=== PATIENT | female | born 1950 | race Caucasian/White ===

== ENCOUNTER 2016-10-22 19:25 | Emergency (ER) | payer BC, OTHER ==
[~2016-10-22] VITALS: Ht 162.6 cm; Wt 70.0 kg
[~2016-10-22 19:25] MED LIST: ALBU1AER INH; BACT800T5 PO; ESTRADIOL PO; FOSA70TA PO; PROGES PO; TESTOST PO; [UNRECOGNIZED DRUG - CODE] PO
[2016-10-22 19:32] VITALS: BP 107/79; PULSE 58; RESP 16; TEMP 97.4; O2SAT 100
[2016-10-22] MEDS ORDERED: SODIUM CHLOR 0.9% 1000 ML INJ 1,000 ML IV SCH (19:49)
--- NOTE | 2016-10-22 19:53 | PD ---
HPI Chief Complaint: Cardiac Complaint Time Seen by Provider: 19:44 Travel History International Travel<30 days: No Contact w/Intl Traveler<30days: No Traveled to known affect area: No History of Present Illness HPI 66-year-old female with history of COPD, here for evaluation of several different complaints. The patient reports having sinus congestion, palpitations , shortness of breath, some chest tightness, generalized malaise. Symptoms started today. She denies fevers or chills. She has had nausea and a few episodes of clear emesis. She feels as though she needs to have a bowel movement at time of assessment. She denies abdominal pain. No real chest pain , however is complaining of some acid reflux like symptoms. PFSH Past Medical History COPD: Yes Menopausal: Yes Tubal Ligation: Yes Past Surgical History Tympanostomy Tube: Yes Social History Alcohol Use: No Tobacco Use: Yes (08/28 PPD) Substance Use: No Allergies-Medications (Allergen,Severity, Reaction): Coded Allergies: No Known Allergies (Verified , 10/22/16) Reported Meds & Prescriptions Reported Meds & Active Scripts Active Reported Alendronate (Alendronate Sodium) 70 Mg Tab 70 Mg PO Q7D Ventolin Hfa 18 GM Inh (Albuterol Sulfate) 90 Mcg/Act Aer 2 Puff INH Q4-6H PRN [estradiol/test] 0.5 Mg PO DAILY [estradiol/proges] 1 Cap PO DAILY Dhea (Prasterone (DHEA)) 10 Mg Cap 5 Mg PO DAILY Review of Systems Except as stated in HPI: all other systems reviewed are Neg Physical Exam Narrative GENERAL: Well-developed, well-nourished, comfortable, no acute distress. SKIN: Warm and dry. HEAD: Atraumatic. Normocephalic. EYES: Pupils equal and round. No scleral icterus. No injection or drainage. ENT: Mucous membranes pink and dry. Bilateral tympanic membranes and external auditory canals are normal. CARDIOVASCULAR: Regular rate and rhythm. No murmur appreciated. RESPIRATORY: No accessory muscle use. Clear to auscultation. Breath sounds equal bilaterally. GASTROINTESTINAL: Abdomen soft, non-tender, nondistended. MUSCULOSKELETAL: No obvious deformities. No clubbing. No cyanosis. No edema. NEUROLOGICAL: Awake and alert. No obvious cranial nerve deficits. Motor grossly within normal limits. Normal speech. PSYCHIATRIC: Appropriate mood and affect; insight and judgment normal. Data Data Last Documented VS Vital Signs Date Time Temp Pulse Resp B/P Pulse Ox O2 Delivery O2 Flow Rate FiO2 10/22/16 22:10 86 18 100/53 96 Room Air 10/22/16 19:32 97.4 Orders Complete Blood Count With Diff (10/22/16 19:49) Comprehensive Metabolic Panel (10/22/16 19:49) Lipase (10/22/16 19:49) Prothrombin Time / Inr (Pt) (10/22/16 19:49) Act Partial Throm Time (Ptt) (10/22/16 19:49) Urinalysis - C+S If Indicated (10/22/16 19:49) Iv Access Insert/Monitor (10/22/16 19:49) Ecg Monitoring (10/22/16 19:49) Oximetry (10/22/16 19:49) Ondansetron Inj (Zofran Inj) (10/22/16 20:00) Pantoprazole Inj (Protonix Inj) (10/22/16 20:00) Sodium Chlor 0.9% 1000 Ml Inj (Ns 1000 M (10/22/16 19:49) Sodium Chloride 0.9% Flush (Ns Flush) (10/22/16 20:00) Electrocardiogram (10/22/16 19:49) Al-Mag Hy-Si 40-40-4 Mg/Ml Liq (Mag-Al P (10/22/16 20:00) Lidocaine 2% Viscous (Xylocaine 2% Visco (10/22/16 20:00) Ckmb (Isoenzyme) Profile (10/22/16 19:49) Troponin I (10/22/16 19:49) Chest, Single Ap (10/22/16 19:49) Albuterol-Ipratropium Neb (Duoneb Neb) (10/22/16 20:00) Influenzae A/B Antigen (10/22/16 19:51) Troponin I (10/22/16 22:30) Fluconazole (Diflucan) (10/22/16 21:15) Pill Splitter (Pill Splitter) (10/22/16 21:45) Labs Laboratory Tests Test 10/22/16 10/22/16 10/22/16 19:40 19:50 22:15 White Blood Count 8.8 TH/MM3 Red Blood Count 5.03 MIL/MM3 Hemoglobin 15.4 GM/DL Hematocrit 46.5 % Mean Corpuscular Volume 92.6 FL Mean Corpuscular Hemoglobin 30.7 PG Mean Corpuscular Hemoglobin 33.2 % Concent Red Cell Distribution Width 12.8 % Platelet Count 253 TH/MM3 Mean Platelet Volume 7.7 FL Neutrophils (%) (Auto) 74.2 % Lymphocytes (%) (Auto) 18.8 % Monocytes (%) (Auto) 6.4 % Eosinophils (%) (Auto) 0.3 % Basophils (%) (Auto) 0.3 % Neutrophils # (Auto) 6.6 TH/MM3 Lymphocytes # (Auto) 1.6 TH/MM3 Monocytes # (Auto) 0.6 TH/MM3 Eosinophils # (Auto) 0.0 TH/MM3 Basophils # (Auto) 0.0 TH/MM3 CBC Comment DIFF FINAL Differential Comment Prothrombin Time 10.3 SEC Prothromb Time International 0.9 RATIO Ratio Activated Partial 26.3 SEC Thromboplast Time Sodium Level 138 MEQ/L Potassium Level 3.5 MEQ/L Chloride Level 103 MEQ/L Carbon Dioxide Level 27.7 MEQ/L Anion Gap 7 MEQ/L Blood Urea Nitrogen 16 MG/DL Creatinine 0.78 MG/DL Estimat Glomerular Filtration 74 ML/MIN Rate Random Glucose 94 MG/DL Calcium Level 8.0 MG/DL Total Bilirubin 1.6 MG/DL Aspartate Amino Transf 13 U/L (AST/SGOT) Alanine Aminotransferase 24 U/L (ALT/SGPT) Alkaline Phosphatase 55 U/L Total Creatine Kinase 48 U/L Troponin I LESS THAN 0.02 LESS THAN 0.02 NG/ML NG/ML Total Protein 6.9 GM/DL Albumin 3.3 GM/DL Lipase 76 U/L Urine Color STRAW Urine Turbidity SLIGHT Urine pH 6.0 Urine Specific Angelica 1.007 Urine Protein NEG mg/dL Urine Glucose (UA) NEG mg/dL Urine Ketones 15 mg/dL Urine Occult Blood NEG Urine Nitrite NEG Urine Bilirubin NEG Urine Leukocyte Esterase NEG Urine Squamous Epithelial 0-5 /hpf Cells Urine Bacteria OCC /hpf Urine Yeast (Budding) RARE Microscopic Urinalysis Comment CULT NOT INDICATED MDM Medical Decision Making Medical Screen Exam Complete: Yes Emergency Medical Condition: Yes Medical Record Reviewed: Yes Interpretation(s) EKG: Sinus, rate 60, right axis deviation, short WI interval, septal T-wave inversions, no ST segment abnormalities, unchanged from 2011 Differential Diagnosis COPD exacerbation, ACS, palpitations, dehydration, electrolyte abnormality, URI , influenza, anxiety Narrative Course Initial vital signs show heart rate 50, blood pressure 107/79, pulse ox 100% on room air, oral temp of 97.4F. CBC shows WBC 8.8, hemoglobin 15.4, hematocrit 46.5, platelets 253. CMP is essentially unremarkable. Cardiac enzymes are negative. Lipase is 76. Influenza is negative. UA shows 15 ketones, occasional bacteria, rare budding yeast, culture not indicated. The patient was given a dose of Diflucan. Chest x-ray: Minimal bibasilar densities likely atelectasis. Patient was given 3 DuoNeb treatments, check cocktail, IV Protonix, IV Zofran, and reports feeling much better. No longer has reflux type symptoms. Delta troponin will be ordered to help rule out cardiac cause for patient's symptoms. Delta troponin is also negative. Patient has history of hiatal hernia which I believe is contributing to her reflux like symptoms. Again she is feeling much better after receiving GI cocktail, Zofran, and Protonix. Her abdominal exam is benign. She is resting comfortably. I do not believe her symptoms are cardiac in nature. I believe she is stable for discharge home with outpatient follow-up with her primary care physician this week. She was informed on when to return to the emergency department. She verbalizes understanding and agreement with plan. Diagnosis Primary Impression: GERD (gastroesophageal reflux disease) Qualified Code: K21.9 - Gastroesophageal reflux disease, esophagitis presence not specified Referrals: Primary Care Physician 3 days Additional Instructions: Follow-up with your primary care physician this week. Return to the emergency department for worsening symptoms or any other concerns. Scripts Pantoprazole (Protonix)40 Mg Tab40 Mg PO DAILY #30 TAB Ref 0 Prov:Chi Brooks MD 10/22/16 Disposition: 01 DISCHARGE HOME Condition: Stable Chi Brooks MD Oct 22, 2016 19:53
[2016-10-22 20:00] VITALS: BP 90/80; PULSE 60; RESP 18; O2SAT 100
[2016-10-22] MEDS ORDERED: LIDOCAINE VISCOUS 2% SOLN 15 ML UDC PO ONE (20:00)
[2016-10-22] MEDS ORDERED: PANTOPRAZOLE SODIUM 40 MG VIAL IVP ONE (20:00)
[2016-10-22] MEDS ORDERED: SODIUM CHLORIDE 0.9% FLUSH 5 ML FLUSH IVF PRN (20:00)
[2016-10-22] MEDS ORDERED: ONDANSETRON HCL 4 MG/2 ML VIAL IVP ONE (20:00)
[2016-10-22] MEDS ORDERED: ALUMINUM/MAGNESIUM/SIMETH 30 ML CUP PO ONE (20:00)
[2016-10-22] MEDS: RESP: ALBUTEROL 2.5 MG/IPRATROPIUM 0.5 MG NEB (SCH) INH (20:04)
[2016-10-22] MEDS ORDERED: ESTRADIOL PO (20:33)
[2016-10-22] MEDS ORDERED: VENTAER INH (20:33)
[2016-10-22] MEDS ORDERED: PROGES PO (20:33)
[2016-10-22] MEDS ORDERED: [UNRECOGNIZED DRUG - CODE] PO (20:33)
[2016-10-22] MEDS ORDERED: [UNRECOGNIZED DRUG - CODE] PO (20:33)
[2016-10-22] MEDS ORDERED: ALEN1TAB48 PO (20:33)
[2016-10-22 20:36] LABS: AUTOMATED NEUTROPHIL # 6.6 TH/MM3 (1.8-7.7); BASOPHIL % 0.3 % (0.0-2.0); EOSINOPHIL % 0.3 % (0.0-4.0); HEMATOCRIT 46.5 % (35.0-46.0); HEMO FLAGS DIFF FINAL; LYMPH % 18.8 % (9.0-44.0); LYMPHOCYTE # 1.6 TH/MM3 (1.0-4.8); MEAN CELL VOLUME 92.6 FL (80.0-100.0); MEAN CORPUSCULAR HEMOGLOBIN 30.7 PG (27.0-34.0); MEAN CORPUSCULAR HGB CONC 33.2 % (32.0-36.0); MONO % 6.4 % (0.0-8.0); NEUT % 74.2 % (16.0-70.0); PLATELET COUNT 253 TH/MM3 (150-450); RED BLOOD COUNT 5.03 MIL/MM3 (4.00-5.30); RED CELL DISTRIBUTION WIDTH 12.8 % (11.6-17.2); WHITE BLOOD COUNT 8.8 TH/MM3 (4.0-11.0)
[2016-10-22 20:38] LABS: BLOOD, URINE NEG (NEG); GLUCOSE,URINE NEG (NEG); KETONE, URINE 15 mg/dL (NEG); NITRITE,URINE NEG (NEG)
[2016-10-22 20:41] LABS: CHLORIDE 103 MEQ/L (98-107); POTASSIUM 3.5 MEQ/L (3.5-5.1); SODIUM (NA) 138 MEQ/L (136-145)
[2016-10-22 20:43] LABS: URINE COLOR STRAW (YELLW/STRAW)
[2016-10-22 20:44] LABS: BACTERIA, URINE OCC /hpf; SQUAMOUS EPITHELIAL CELL URINE 0-5 /hpf (0-5)
[2016-10-22 20:44] LABS: APTT (PATIENT) 26.3 SEC (24.3-30.1); INTERNATIONAL NORMALIZED RATIO 0.9 RATIO; PROTHROMBIN TIME - PATIENT 10.3 SEC (9.8-11.6)
[2016-10-22 20:45] LABS: COMMENT (UR) CULT NOT INDICATED; CULTURE IF INDICATED CULT NOT INDICATED
[2016-10-22 20:47] LABS: ANION GAP 7 MEQ/L (5-15); BICARBONATE 27.7 MEQ/L (21.0-32.0); BLOOD UREA NITROGEN 16 MG/DL (7-18)
[2016-10-22 20:50] LABS: ALT (GPT) 24 U/L (10-53); AST (GOT) 13 U/L (15-37); GLOMERULAR FILTRATION RATE 74 ML/MIN (>89)
[2016-10-22 20:51] LABS: TOTAL BILIRUBIN ADULT 1.6 MG/DL (0.2-1.0)
[2016-10-22 20:53] LABS: ALKALINE PHOSPHATASE 55 U/L (45-117)
[2016-10-22 20:57] LABS: CREATINE KINASE 48 U/L (26-192)
[2016-10-22 21:00] VITALS: BP 107/69; PULSE 88; RESP 18; O2SAT 97
--- NOTE | 2016-10-22 21:01 | RADHPO ---
EXAM DATE/TIME: 10/22/2016 20:12 [facility] COMPARISON: No previous studies available for comparison. INDICATIONS : Short of breath. MEDICAL HISTORY : None. SURGICAL HISTORY : None. ENCOUNTER: Initial ACUITY: 1 day PAIN SCORE: 6/10 LOCATION: Bilateral chest FINDINGS: A single view of the chest demonstrates minimal bibasilar densities. Heart normal size. The cardiomed iastinal contours are unremarkable. Osseous structures are intact. CONCLUSION: Minimal bibasilar densities likely atelectasis. Taqueria Fontenot MD on October 22, 2016 at 20:58 Board Certified Radiologist. This report was verified electronically.
[2016-10-22] MEDS ORDERED: FLUCONAZOLE 100 MG TAB PO ONE (21:15)
[2016-10-22] MEDS ORDERED: PILL SPLITTER OTHER PRN (21:45)
[2016-10-22 22:10] VITALS: BP 100/53; PULSE 86; RESP 18; O2SAT 96
[2016-10-22] MEDS ORDERED: PROT40TA PO (22:56)
--- NOTE | 2016-10-23 12:03 | EKG ---
Date Performed: 10/22/2016 Time Performed: 19:59:20 PTAGE: 66 years EKG: Sinus rhythm . Rightward axis Septal T wave changes are nonspecific Compared to prior tracing no significant tucker e Borderline ECG PREVIOUS TRACING : 04/10/2011 08.38 DOCTOR: Luan Tellez Interpretating Date/Time 10/23/2016 12:03:15
== END 2016-10-22 23:10 | disposition home or self-care (01) ==
LOC: PHED 19:25
DX: K21.9 Gastro-esophageal reflux disease without esophagitis (principal); J44.9 Chronic obstructive pulmonary disease, unspecified; F17.200 Nicotine dependence, unspecified, uncomplicated
CPT/HCPCS: 71010; 80053; 81001; 82550; 83690; 84484; 85025; 85610; 85730; 87804; 93005; 94640; 94664; 96361; 96374; 96375; 99285; C9113; J2405; J7030

== ENCOUNTER 2017-07-30 10:34 | Emergency (ER) | payer OTHER, MEDICARE ==
[~2017-07-30] VITALS: Ht 165.1 cm; Wt 71.0 kg
[~2017-07-30 10:34] MED LIST changes: -ALBU1AER INH; +ALEN1TAB48 PO; -BACT800T5 PO; -FOSA70TA PO; +PROT40TA PO; -TESTOST PO; +VENTAER INH; +[UNRECOGNIZED DRUG - CODE] PO; +[UNRECOGNIZED DRUG - CODE] PO; -[UNRECOGNIZED DRUG - CODE] PO
[2017-07-30 10:43] VITALS: BP 110/67; PULSE 67; RESP 17; TEMP 97.3; O2SAT 98
--- NOTE | 2017-07-30 11:14 | PD ---
HPI . Reflux Chief Complaint: Abdominal Pain Time Seen by Provider: 11:04 Travel History International Travel<30 days: No Contact w/Intl Traveler<30days: No Traveled to known affect area: No History of Present Illness HPI The patient presents with a chief complaint of abdominal pain. It is located in the epigastrium. It started 2 days ago. She describes her discomfort as a burning sensation which she rates 6/10. Has intermittent reflux but it is usually easily treatable with [id number]-[id number] antacids. She has been using kqrk-mum-[id number] antacids for the last couple of days without relief of her symptoms. She states that her reflux is generally worsened by tomatoes. In addition, she reports some sinus drainage. [facility] Past Medical History COPD: Yes Diminished Hearing: No Gastrointestinal Disorders: Yes (IBS) GERD: Yes Musculoskeletal: Yes Neurologic: Yes (neurofibromatosis) Respiratory: Yes (MILD COPD) Tetanus Vaccination: Unknown Influenza Vaccination: Yes Menopausal: Yes : 0 Tubal Ligation: Yes Past Surgical History Abdominal Surgery: Yes (colon polyps removed/ endoscopy) Tonsillectomy: Yes Other Surgery: Yes (multiple removal of fibroid tumors without anesthesia) Social History Alcohol Use: Yes (occassional ) Tobacco Use: Yes (1 08/28 PPD) Substance Use: No Allergies-Medications (Allergen,Severity, Reaction): Coded Allergies: No Known Allergies (Verified Adverse Reaction, Unknown, 07/30/17) Reported Meds & Prescriptions Reported Meds & Active Scripts Active Reported Alendronate (Alendronate Sodium) 70 Mg Tab 70 Mg PO Q7D Ventolin Hfa 18 GM Inh (Albuterol Sulfate) 90 Mcg/Act Aer 2 Puff INH Q4-6H PRN Review of Systems Except as stated in HPI: all other systems reviewed are Neg HENT: Positive: Other (postnasal drip) Gastrointestinal: Positive: Abdominal Pain, No: Nausea, Vomiting, Diarrhea Physical Exam Narrative GENERAL: Awake and alert and in no acute distress. SKIN: warm/dry. HEAD: Normocephalic. EYES: Pupils equal and round. No scleral icterus. No injection or drainage. ENT: No nasal bleeding or discharge. Mucous membranes pink and moist. She does have some irritation of her oropharynx. NECK: Trachea midline. Full range of motion without pain.. CARDIOVASCULAR: Regular rate and rhythm. Heart sounds are normal. RESPIRATORY: No accessory muscle use. Clear to auscultation. Breath sounds equal bilaterally. GASTROINTESTINAL: Abdomen soft. Nontender. Bowel sounds present. Nondistended. : MUSCULOSKELETAL: No obvious deformities. NEUROLOGICAL: Awake and alert. No obvious cranial nerve deficits. Motor grossly within normal limits. Normal speech. PSYCHIATRIC: Appropriate mood and affect; insight and judgment normal. Data Data Last Documented VS Vital Signs Date Time Temp Pulse Resp B/P (MAP) Pulse Ox O2 Delivery O2 Flow Rate FiO2 07/30/17 10:43 97.3 67 17 110/67 (81) 98 Orders Orders Complete Blood Count With Diff (07/30/17 11:04) Comprehensive Metabolic Panel (07/30/17 11:04) Lipase (07/30/17 11:04) Iv Access Insert/Monitor (07/30/17 11:04) Sodium Chloride 0.9% Flush (Ns Flush) (07/30/17 11:15) Electrocardiogram (07/30/17 11:04) Famotidine Inj (Pepcid Inj) (07/30/17 11:15) Al-Mag Hy-Si 40-40-4 Mg/Ml Liq (Mag-Al P (07/30/17 11:15) Lidocaine 2% Viscous (Xylocaine 2% Visco (07/30/17 11:15) Labs Laboratory Tests Test 07/30/17 11:20 White Blood Count 10.4 TH/MM3 Red Blood Count 5.21 MIL/MM3 Hemoglobin 15.8 GM/DL Hematocrit 48.0 % Mean Corpuscular Volume 92.1 FL Mean Corpuscular Hemoglobin 30.3 PG Mean Corpuscular Hemoglobin Concent 33.0 % Red Cell Distribution Width 12.0 % Platelet Count 243 TH/MM3 Mean Platelet Volume 7.7 FL Neutrophils (%) (Auto) 78.3 % Lymphocytes (%) (Auto) 15.1 % Monocytes (%) (Auto) 5.8 % Eosinophils (%) (Auto) 0.4 % Basophils (%) (Auto) 0.4 % Neutrophils # (Auto) 8.2 TH/MM3 Lymphocytes # (Auto) 1.6 TH/MM3 Monocytes # (Auto) 0.6 TH/MM3 Eosinophils # (Auto) 0.0 TH/MM3 Basophils # (Auto) 0.0 TH/MM3 CBC Comment DIFF FINAL Differential Comment Blood Urea Nitrogen 16 MG/DL Creatinine 0.87 MG/DL Random Glucose 88 MG/DL Total Protein 7.8 GM/DL Albumin 3.8 GM/DL Calcium Level 9.1 MG/DL Alkaline Phosphatase 70 U/L Aspartate Amino Transf (AST/SGOT) 18 U/L Alanine Aminotransferase (ALT/SGPT) 29 U/L Total Bilirubin 1.8 MG/DL Sodium Level 136 MEQ/L Potassium Level 4.1 MEQ/L Chloride Level 101 MEQ/L Carbon Dioxide Level 28.3 MEQ/L Anion Gap 7 MEQ/L Estimat Glomerular Filtration Rate 66 ML/MIN Lipase 101 U/L MDM Medical Decision Making Medical Screen Exam Complete: Yes Emergency Medical Condition: Yes Medical Record Reviewed: Yes (patient was seen in September 2016 with very similar complaints. Her workup was negative. She was successfully treated with a GI cocktail, Protonix and Zofran.) Interpretation(s) EKG shows a sinus rhythm with a rate of 64. No ST segment elevation or depression. Differential Diagnosis Differential diagnosis of abdominal pain includes but is not limited to gastritis, pancreatitis, hepatitis, gastroenteritis, gallbladder disease, constipation, urinary retention, UTI, peptic ulcer disease, diverticulitis or appendicitis Narrative Course This patient presents with epigastric abdominal pain. She reports a history of GERD and states that her symptoms are similar to her previous episodes of GERD. The difference is that this episode has not been relieved by etow-jee-vwhyedf antacids. I have ordered a GI cocktail and IV Pepcid. (Protonix is in short supply.) I will check labs including a lipase. I will also check an EKG. The patient reports she feels much better following the GI cocktail. CBC & BMP Diagram 07/30/17 11:20 Total Protein 7.8, Albumin 3.8, Calcium Level 9.1, Alkaline Phosphatase 70, Aspartate Amino Transf (AST/SGOT) 18, Alanine Aminotransferase (ALT/SGPT) 29, Total Bilirubin 1.8 H Lipase 101 The patient presented with epigastric pain compatible with GERD. She feels much better. Her labs and EKG are unremarkable. She will be discharged home. I will give her a prescription for Prilosec. Diagnosis Primary Impression: GERD (gastroesophageal reflux disease) Qualified Codes: K21.9 - Gastro-esophageal reflux disease without esophagitis Patient Instructions: Gastroesophageal Reflux Disease (DC), General Instructions Med/Other Pt SpecificInfo: Prescription(s) given Scripts Omeprazole Magnesium (Prilosec) 20 Mg Tab 1 TAB PO DAILY Y for indigestion, #30 Prov: Zoya Olsen MD 07/30/17 Disposition: 01 DISCHARGE HOME Condition: Stable Zoya Olsen MD Jul 30, 2017 11:14
[2017-07-30] MEDS ORDERED: FAMOTIDINE 20 MG/2 ML VIAL IV PUSH ONE (11:15)
[2017-07-30] MEDS ORDERED: SODIUM CHLORIDE 0.9% FLUSH 10 ML FLUSH IV FLUSH PRN (11:15)
[2017-07-30] MEDS ORDERED: LIDOCAINE VISCOUS 2% SOLN 15 ML UDC PO ONE (11:15)
[2017-07-30] MEDS ORDERED: ALUMINUM/MAGNESIUM/SIMETH 30 ML CUP PO ONE (11:15)
[2017-07-30 11:41] LABS: AUTOMATED NEUTROPHIL # 8.2 TH/MM3 (1.8-7.7); BASOPHIL % 0.4 % (0.0-2.0); EOSINOPHIL % 0.4 % (0.0-4.0); HEMO FLAGS DIFF FINAL; LYMPH % 15.1 % (9.0-44.0); LYMPHOCYTE # 1.6 TH/MM3 (1.0-4.8); MEAN CELL VOLUME 92.1 FL (80.0-100.0); MEAN CORPUSCULAR HEMOGLOBIN 30.3 PG (27.0-34.0); MONO % 5.8 % (0.0-8.0); NEUT % 78.3 % (16.0-70.0); PLATELET COUNT 243 TH/MM3 (150-450); RED BLOOD COUNT 5.21 MIL/MM3 (4.00-5.30); WHITE BLOOD COUNT 10.4 TH/MM3 (4.0-11.0)
[2017-07-30 11:56] LABS: CHLORIDE 101 MEQ/L (98-107); POTASSIUM 4.1 MEQ/L (3.5-5.1); SODIUM (NA) 136 MEQ/L (136-145)
[2017-07-30 11:59] LABS: ANION GAP 7 MEQ/L (5-15); BICARBONATE 28.3 MEQ/L (21.0-32.0); BLOOD UREA NITROGEN 16 MG/DL (7-18)
[2017-07-30 12:02] LABS: ALT (GPT) 29 U/L (10-53); AST (GOT) 18 U/L (15-37); GLOMERULAR FILTRATION RATE 66 ML/MIN (>89)
[2017-07-30 12:04] LABS: TOTAL BILIRUBIN ADULT 1.8 MG/DL (0.2-1.0)
[2017-07-30 12:05] LABS: ALKALINE PHOSPHATASE 70 U/L (45-117)
[2017-07-30 12:14] VITALS: BP 128/63; PULSE 67; RESP 17; O2SAT 98
[2017-07-30] MEDS ORDERED: PRIL20TA2 PO (12:15)
--- NOTE | 2017-07-30 18:42 | EKG ---
Date Performed: 07/30/2017 Time Performed: 11:15:38 PTAGE: 66 years EKG: Sinus rhythm NORMAL ECG Since PREVIOUS TRACING , no significant change noted PREVIOUS TRACIN10/22/2016 19.59 DOCTOR: Barbra Lebron Interpretating Date/Time 07/30/2017 18:41:20
== END 2017-07-30 12:27 | disposition home or self-care (01) ==
LOC: PHED 10:34
DX: K21.9 Gastro-esophageal reflux disease without esophagitis (principal); F17.200 Nicotine dependence, unspecified, uncomplicated; Z79.899 Other long term (current) drug therapy
CPT/HCPCS: 80053; 83690; 85025; 93005; 96374

== ENCOUNTER 2018-07-31 23:27 | Inpatient (IN) ==
--- NOTE | 2018-08-01 00:31 | ED ---
HPI General Chief Complaint: Extremity Injury, Lower Stated Complaint: R Ankle injury Time Seen by Provider: 08/01/18 00:09 Source: patient Mode of arrival: wheelchair Limitations: no limitations History of Present Illness HPI Narrative: Patient states that she was carrying a box down from her attic. Tripped on the fold-down stairwell and thinks that she rolled her right ankle. States that she is unable to bear weight on the extremity. no numbness or tingling in foot. Just instant pain and swelling MD complaint: Reports foot injury Type of Injury: Reports inversion Place: Reports home Severity: moderate Severity scale (1-10): 5 Relieving factors: nothing Exacerbating factors: nothing Associated symptoms: Reports unable to bear weight Other symptoms: Denies loss of consciousness, chest pain, diaphoresis, SOB and nausea/vomiting Treatments prior to arrival: Reports cold therapy Related Data Home Medications Medication Instructions Recorded Confirmed alendronate [Fosamax] 70 mg PO QWEEK 08/01/18 08/01/18 fluticasone-vilanterol [Breo 1 inh INHALATION DAILY 08/01/18 08/01/18 Ellipta] furosemide [Lasix] 20 mg PO DAILY PRN 08/01/18 08/01/18 Allergies Allergy/AdvReac Type Severity Reaction Status Date / Time No Known Allergies Allergy Verified 08/01/18 04:08 Review of Systems ROS: all other systems reviewed are negative [facility] Medical History Medical History Asthma (Acute) Kidney stones (Acute) Skin cancer (Acute) Surgical History Surgical History Hx of tonsillectomy (Acute) Social History Social History Substance History: No History of Abuse Second Hand Smoke Exposure: No Smoking Status: Never smoker How Often Do You Have a Drink Containing Alcohol: 4 or more times a week Recent Travel in [facility] [[email or web address]] within the Last 8 Weeks: No Recent Out of Country Travel within the Last 8 Weeks: No Exam HENMT Head: normocephalic and atraumatic Nose: no nasal discharge and no epistaxis Mouth: moist mucous membranes Eyes Sclera: normal sclerae Pupils: PERRL Neck Neck: trachea midline and no JVD Resp Effort & Inspection: no use of accessory muscles Auscultation: clear to auscultation bilaterally Cardio Rate: regular rate Rhythm: regular rhythm Heart Sounds: no murmurs GI Inspection: non-distended Palpation: soft, no hepatosplenomegaly and nontender Skin General: dry skin (warm) Neuro General: alert and awake Cranial Nerves: other Speech: speech normal Motor: no movement abnormalities noted Extrem General: normal to inspection, no clubbing, no cyanosis and no edema Right lower extremity: ankle and foot Details: edema (lateral and medial maleolous ecchymosis and edema ), ecchymosis (dorsal and plantar posterior foot. ), vascular exam Details: dorsalis pedis pulse present and posterior tibial pulse present and motor-sensory exam Psych Mood: congruent mood Affect: normal affect Judgment: judgment good Course Initial Documented Vital Signs Temperature 97.7 F 08/01/18 00:26 Pulse Rate 87 08/01/18 00:26 Respiratory Rate 15 08/01/18 00:26 Blood Pressure 114/58 L 08/01/18 00:26 Pulse Oximetry 96 08/01/18 00:26 Last Documented Vital Signs Temperature 97.4 F L 08/01/18 06:12 Pulse Rate 90 08/01/18 06:12 Respiratory Rate 18 08/01/18 06:12 Blood Pressure 121/59 L 08/01/18 06:12 Pulse Oximetry 96 08/01/18 06:12 Medical Decision Making [facility] Narrative Medical decision making narrative: Patient states that she was carrying a box down from her attic. Tripped on the fold-down stairwell and thinks that she rolled her right ankle. States that she is unable to bear weight on the extremity Physical exam shows right lower extremity medial and lateral ankles moderately swollen/edematous. Extreme tenderness to palpation anteriorly or posteriorly medial laterally Patient will receive dose of ibuprofen and a right X ray of her ankle XR shoes calcaneal fracture. PAtient will be placed in posterior short leg and stirrup splint CT scan ordered of the right foot and ankle CT scan showed Intra-articular calcaneal fracture of the right foot Patient's blood work was ordered including basic labs CBC CMP PT/INR Labs are unremarkable. Vital signs of states stable this entire stay in our ED. Patient admitted to Dr. Ceja hospitalist for surgical consult by podiatry. Medical Screen Exam Complete: Yes Emergency Medical Condition: Yes Differential Diagnosis Differential Diagnosis: Ankle fracture, ankle sprain, metatarsal fracture, cuboid fracture, talus fracture, calcaneal fracture, superficial hematoma, Lab Data Lab results reviewed: Yes I reviewed the patient's lab results. Result diagrams: 08/01/18 04:20 08/01/18 04:20 Lab Results 08/01/18 08/01/18 08/01/18 Range/Units 04:20 04:20 04:20 WBC 13.1 H (4.0-11.0) th/mm3 RBC 4.56 (4.00-5.30) mil/mm3 Hgb 14.3 (11.6-15.3) gm/dL Hct 43.7 (35.0-46.0) % MCV 95.7 (80.0-100.0) fL MCH 31.4 (27.0-34.0) pg MCHC 32.8 (32.0-36.0) % RDW 13.2 (11.6-17.2) % Plt Count 228 (150-450) th/mm3 MPV 7.7 (7.0-11.0) fL Neut % (Auto) 78.4 H (16.0-70.0) % Lymph % (Auto) 12.5 (9.0-44.0) % [place] % (Auto) 8.1 H (0.0-8.0) % Eos % (Auto) 0.5 (0.0-4.0) % Baso % (Auto) 0.5 (0.0-2.0) % Neut # (Auto) 10.3 H (1.8-7.7) th/mm3 Lymph # (Auto) 1.6 (1.0-4.8) th/mm3 [place] # (Auto) 1.1 H (0.0-0.9) th/mm3 Eos # (Auto) 0.1 (0.0-0.4) th/mm3 Baso # (Auto) 0.1 (0.0-0.2) th/mm3 WBC Differential . Differential Comment Auto diff final PT 9.9 (9.8-11.6) sec INR 1.0 Ratio APTT 24.8 (23.4-31.7) sec Sodium 140 (136-145) meq/L Potassium 4.3 (3.5-5.1) meq/L Chloride 108 H (98-107) meq/L Carbon Dioxide 25.0 (21.0-32.0) meq/L Anion Gap 7 (5-15) meq/L BUN 32 H (7-18) mg/dL Creatinine 0.96 (0.50-1.00) mg/dL Estimated GFR 58 L (>89) mL/min Random Glucose 87 (74-106) mg/dL Calcium 8.6 (8.5-10.1) mg/dL Total Bilirubin 0.7 (0.2-1.0) mg/dL AST 29 (15-37) U/L ALT 22 (10-53) U/L Alkaline Phosphatase 57 (45-117) U/L Total Protein 7.1 (6.4-8.2) g/dL Albumin 3.6 (3.4-5.0) g/dL Imaging Data Attestation: I personally reviewed and interpreted this imaging study as follows : My impression: Intra-articular calcaneal fracture of the right foot Radiologist's impression: Ankle X-Ray 08/01/18 00:09 CONCLUSION: Acute nondisplaced calcaneal fracture. Ankle CT 08/01/18 00:47 CONCLUSION: 1. Calcaneal fracture. Foot CT 08/01/18 00:47 CONCLUSION: 1. Calcaneal fracture. Discharge Plan Discharge Disposition Patient Disposition: ED Admit(ED Internal Use Only) Discharge Condition Condition: Stable Discharge Order Discharge Orders: ED Use Only Admit Order (Routine); Ordered 08/01/18 Ordered By: Camila Pascal Discharge Details Diagnosis: Right calcaneal fracture, Intra-articular fracture of calcaneus Physicians Team ED Provider: Zoya Olsen ED Midlevel Provider: Camila Pascal Primary Care Provider: Edwar Murphy Attending Provider: Taqueria Catalan Other Providers: Luis Miguel Jasso Status ED Status: Left Department Discharge Information Discharge Date/Time: 08/01/18 06:21
--- NOTE | 2018-08-01 00:37 | XR ---
EXAM DATE: 08/01/2018 12:24 AM EST AGE/SEX: 67 years / Female INDICATIONS: Right ankle pain post fall today CLINICAL DATA: This is the patient's initial encounter. Patient reports that signs and symptoms have been present for 1 day and indicates a pain score of 10/10. MEDICAL/SURGICAL HISTORY: None. None. COMPARISON: No prior exams available for comparison. FINDINGS: Multiple views of the left ankle reveal an acute fracture through the calcaneus. There is extension i nto the subtalar joints. The remaining visualized bony structures are intact. Old trauma involving th e fifth metatarsal. Lateral soft tissue swelling. CONCLUSION: Acute nondisplaced calcaneal fracture. Electronically signed by: Yusuf Yusuf MD 08/01/2018 12:36 AM EST
--- NOTE | 2018-08-01 03:02 | CT ---
EXAM DATE: 08/01/2018 2:46 AM EST AGE/SEX: 67 years / Female INDICATIONS: Fall from ladder. Calcaneal fracture. CLINICAL DATA: This is the patient's initial encounter. Patient reports that signs and symptoms have been present for 1 day and indicates a pain score of 4/10. MEDICAL/SURGICAL HISTORY: Asthma. None. RADIATION DOSE: 7.17 CTDI (mGy) [place] [facility] [place]/01/[place]. . TECHNIQUE: Multiple contiguous axial images were acquired using a multirow detector CT scanner witho ut contrast. Multiplanar reconstruction was performed in the sagittal and coronal planes. Using auto mated exposure control and adjustment of the mA and/or kV according to patient size, radiation dose w as kept as low as reasonably achievable to obtain optimal diagnostic quality images. DICOM format im age data is available electronically for review and comparison. FINDINGS: An acute comminuted fracture seen involving the calcaneus. There is extension to the calcaneocuboid a rticular surface as well as the subtalar joints. No significant angulation or distraction. The remain ing bony structures are intact. Soft tissues are unremarkable. CONCLUSION: 1. Calcaneal fracture. Electronically signed by: Yusuf Yusuf MD 08/01/2018 3:01 AM EST
--- NOTE | 2018-08-01 03:04 | CT ---
EXAM DATE: 08/01/2018 2:43 AM EST AGE/SEX: 67 years / Female INDICATIONS: Fall from ladder. Calcaneal fracture. CLINICAL DATA: This is the patient's initial encounter. Patient reports that signs and symptoms have been present for 1 day and indicates a pain score of 4/10. MEDICAL/SURGICAL HISTORY: None. None. RADIATION DOSE: 7.18 CTDI (mGy) COMPARISON: [facility] [place] FOOT RIGHT W/O CONTRAST, 08/01/2018. . TECHNIQUE: Multiple contiguous axial images were acquired using a multirow detector CT scanner witho ut contrast. Multiplanar reconstruction was performed in the sagittal and coronal planes. Using aut omated exposure control and adjustment of the mA and/or kV according to patient size, radiation dose was kept as low as reasonably achievable to obtain optimal diagnostic quality images. DICOM format i mage data is available electronically for review and comparison. FINDINGS: An acute calcaneal fracture detailed in the CT of the foot report. The ankle is preserved. Soft tissu e swelling adjacent to the calcaneus. Talar dome is intact. Distal tibia and fibula are unremarkable. CONCLUSION: 1. Calcaneal fracture. Electronically signed by: Yusuf Yusuf MD 08/01/2018 3:03 AM EST
[2018-08-01] MEDS ORDERED: Pantoprazole Inj 40 MG Vial IV.PUSH ONE ×2 (03:18→04:30)
[2018-08-01] MEDS ORDERED: Pantoprazole Inj 40 MG Vial IV.PUSH STA (04:34)
[2018-08-01 04:47] LABS: Baso # (Auto) 0.1 th/mm3 (0.0-0.2); Baso % (Auto) 0.5 % (0.0-2.0); Eos # (Auto) 0.1 th/mm3 (0.0-0.4); Eos % (Auto) 0.5 % (0.0-4.0); Hematocrit 43.7 % (35.0-46.0); Hemoglobin 14.3 gm/dL (11.6-15.3); Lymph # (Auto) 1.6 th/mm3 (1.0-4.8); Lymph % (Auto) 12.5 % (9.0-44.0); Mean Corpuscular HGB Conc 32.8 % (32.0-36.0); Mean Corpuscular Hemoglobin 31.4 pg (27.0-34.0); Mean Corpuscular Volume 95.7 fL (80.0-100.0); Mean Platelet Volume 7.7 fL (7.0-11.0); Mono # (Auto) 1.1 th/mm3 (0.0-0.9); Mono % (Auto) 8.1 % (0.0-8.0); Neut # (Auto) 10.3 th/mm3 (1.8-7.7); Neut % (Auto) 78.4 % (16.0-70.0); Platelet Count 228 th/mm3 (150-450); Red Blood Count 4.56 mil/mm3 (4.00-5.30); Red Cell Distribution Width 13.2 % (11.6-17.2); White Blood Count 13.1 th/mm3 (4.0-11.0)
[2018-08-01 04:54] LABS: Activated Partial Thrombo Time 24.8 sec (23.4-31.7); Prothrombin Time 9.9 sec (9.8-11.6)
[2018-08-01 05:03] LABS: Alkaline Phosphatase 57 U/L (45-117); Total Protein 7.1 g/dL (6.4-8.2)
[2018-08-01 05:15] LABS: Alanine Aminotransferase 22 U/L (10-53); Albumin 3.6 g/dL (3.4-5.0); Anion Gap 7 meq/L (5-15); Aspartate Aminotransferase 29 U/L (15-37); Blood Urea Nitrogen 32 mg/dL (7-18); Calcium 8.6 mg/dL (8.5-10.1); Chloride 108 meq/L (98-107); Glomerular Filtration Rate 58 mL/min (>89); Glucose,Random 87 mg/dL (74-106); Sodium 140 meq/L (136-145)
[2018-08-01 05:17] LABS: Potassium 4.3 meq/L (3.5-5.1)
[2018-08-01] MEDS ORDERED: Acetaminophen 325 MG Tablet PO PRN (05:25)
[2018-08-01] MEDS ORDERED: Dextrose 50% in Water 50 ML Vial IV.PUSH PRN (05:25)
[2018-08-01] MEDS ORDERED: Bisacodyl 10 MG Supp RECTAL PRN (05:25)
[2018-08-01] MEDS ORDERED: Sod Chloride 0.9% Inj 1,000 ML IV.CONT SCH (05:30)
[2018-08-01 06:26] VITALS: RESP 18
[2018-08-01] MEDS ORDERED: Morphine Sulfate Inj 2 MG/ML Vial IV.PUSH PRN (07:05)
[2018-08-01 08:26] VITALS: PULSE 76
[2018-08-01] MEDS: Insulin NovoLOG Aspart Correctional Sugar Inj SQ SCH ×2 (08:41→13:08)
--- NOTE | 2018-08-01 08:44 | P.CONPOD ---
History of Present Illness Service: Podiatry Consult date: 08/01/18 Reason for Consult: right calcaneus fracture Primary Care Provider: Edwar Murphy MD History of Present Illness: Patient sustained fall from attic and was found on XR to have calcaneus fracture. She is having nausea today and is hoping for discharge soon Review of Systems Gastrointestinal: Reports nausea, Reports vomiting PMFSH - History History Provided By: Patient - Medical History Medical History: Medical History (Last Updated 08/01/18 @ 06:27 by Kelsey Casas RN) Asthma Kidney stones Skin cancer - Surgical History Surgical History: Surgical History (Last Updated 08/01/18 @ 06:27 by Kelsey Casas RN) Hx of tonsillectomy - Family History Family History: Family History (Last Updated 08/01/18 @ 09:28 by Taqueria Catalan MD) Other Lung cancer - Tobacco History Second Hand Smoke Exposure: Yes Tobacco Use In Past 30 Days: Yes Smoking Status: Heavy tobacco smoker Tobacco Type: Cigarettes - Alcohol History How Often Do You Have a Drink Containing Alcohol: Monthly or less - Substance Use History Substance History: No History of Abuse - Travel History Recent Travel in the [place] Within the Last 8 Weeks: No Recent Travel Out of the Country Within the Last 8 Weeks: No - Immunization History Tetanus Immunization: <5 Years Hx Influenza Vaccine This Season: Yes Medications and Allergies Active Medications: Active Medications Acetaminophen (Tylenol) 650 mg PO Q4H PRN PRN Reason: Headache/fever/pain1-4 Hydrocodone Bitart/Acetaminophen ([place] 7.5/325) 1 tab PO Q6H PRN PRN Reason: Pain scale 5 to 10 Al Hydroxide/Mg Hydroxide (Milk Of Magnesia Liq) 30 ml PO Q12H PRN PRN Reason: Mild Constipation Bisacodyl (Dulcolax Supp) 10 mg RECTAL DAILY PRN PRN Reason: SEVERE CONSITIPATION Dextrose (D50w Vial) 50 ml IV.PUSH UNSCH PRN PRN Reason: PER HYPOGLYCEMIA PROTOCOL Glucagon (Glucagon Inj) 1 mg OTHER PRN PRN PRN Reason: for Hypoglycemia Protocol Sodium Chloride (Ns Inj) 1,000 mls @ 100 mls/hr IV.CONT .Q10H FRAN Last Admin: 08/01/18 06:40 Dose: 100 mls/hr Insulin Aspart (Novolog Insulin Correctional Sugar Inj) 0 unit SQ ACHS AND 3AM FRAN; Protocol Last Admin: 08/01/18 08:41 Dose: Not Given Lactulose (Lactulose Liq) 30 ml PO DAILY PRN PRN Reason: SEVERE CONSITIPATION Morphine Sulfate (Morphine Inj) 2 mg IV.PUSH Q3H PRN PRN Reason: Breakthrough pain/or if NPO Last Admin: 08/01/18 08:32 Dose: 2 mg Ondansetron HCl (Zofran Inj) 4 mg IV.PUSH Q6H PRN PRN Reason: NAUSEA OR VOMITING Senna/Docusate Sodium ([place]-Colace) 1 tab PO BID [facility] Last Admin: 08/01/18 08:41 Dose: Not Given Sennosides (Senokot) 17.2 mg PO Q12H PRN PRN Reason: Moderate Constipation Sodium Chloride (Ns Flush) 2 ml IV.FLUSH BID [facility] Last Admin: 08/01/18 08:41 Dose: Not Given Sodium Chloride (Ns Flush) 2 ml IV.FLUSH PRN PRN PRN Reason: FLUSH AFTER USING IV ACCESS Allergies Allergy/AdvReac Type Severity Reaction Status Date / Time No Known Allergies Allergy Verified 08/01/18 04:08 Home Medications Medication Instructions Recorded Confirmed Type alendronate [Fosamax] 70 mg PO QWEEK 08/01/18 08/01/18 History fluticasone-vilanterol [Breo 1 inh INHALATION DAILY 08/01/18 08/01/18 History Ellipta] furosemide [Lasix] 20 mg PO DAILY PRN 08/01/18 08/01/18 History Physical Exam Vital signs: Vital Signs 08/01/18 00:26 08/01/18 05:44 08/01/18 06:12 Temperature 97.7 F 97.4 F L Pulse Rate 87 80 90 Respiratory Rate 15 16 18 Blood Pressure 114/58 L 118/56 L 121/59 L Pulse Oximetry 96 96 96 08/01/18 08:00 Temperature 98.1 F Pulse Rate 76 Respiratory Rate 18 Blood Pressure 119/58 L Pulse Oximetry 98 Intake & Output 07/31/18 08/01/18 08/01/18 18:59 06:59 18:59 Weight 76.8 kg Other: Date of Last Bowel Movement 07/31/18 Weight On Admission 76.8 kg Narrative: splint intact right lower extremity. Neurovascularly intact to digits. Pain controlled Results - Labs CBC & Chem 7: 08/01/18 04:20 08/01/18 04:20 Laboratory Results - last 24 hr 08/01/18 08/01/18 08/01/18 04:20 04:20 04:20 WBC 13.1 H RBC 4.56 Hgb 14.3 Hct 43.7 MCV 95.7 MCH 31.4 MCHC 32.8 RDW 13.2 Plt Count 228 MPV 7.7 Neut % (Auto) 78.4 H Lymph % (Auto) 12.5 [place] % (Auto) 8.1 H Eos % (Auto) 0.5 Baso % (Auto) 0.5 Neut # (Auto) 10.3 H Lymph # (Auto) 1.6 [place] # (Auto) 1.1 H Eos # (Auto) 0.1 Baso # (Auto) 0.1 WBC Differential . Differential Comment Auto diff final PT 9.9 INR 1.0 APTT 24.8 Sodium 140 Potassium 4.3 Chloride 108 H Carbon Dioxide 25.0 Anion Gap 7 BUN 32 H Creatinine 0.96 Estimated GFR 58 L Random Glucose 87 Calcium 8.6 Total Bilirubin 0.7 AST 29 ALT 22 Alkaline Phosphatase 57 Total Protein 7.1 Albumin 3.6 - Imaging Impressions Ankle X-Ray 08/01/18 00:09 CONCLUSION: Acute nondisplaced calcaneal fracture. Ankle CT 08/01/18 00:47 CONCLUSION: 1. Calcaneal fracture. Foot CT 08/01/18 00:47 CONCLUSION: 1. Calcaneal fracture. Assessment and Plan - Assessment (1) Right calcaneal fracture Code(s): S92.001A - Unspecified fracture of right calcaneus, initial encounter for closed fracture Status: Acute Plan: Minimally displaced. Treating nonoperatively Cancel NPO Nonweightbearing right lower extremity in splint Needs to be discharged with pain medication and DVT prophylaxis Follow up in clinic in 2 weeks (1) Right calcaneal fracture Qualifiers: Encounter type: initial encounter Calcaneus location: unspecified portion of calcaneus Fracture type: closed Fracture alignment: nondisplaced Qualified Code(s): S92.001A - Unspecified fracture of right calcaneus, initial encounter for closed fracture
[2018-08-01] MEDS ORDERED: Senna/Docusate Sodium 8.6/50 MG Tablet PO SCH (09:00)
--- NOTE | 2018-08-01 09:30 | P.HP ---
History of Present Illness Primary Care Physician: Edwar Murphy MD Chief Complaint: Right ankle pain History of Present Illness: 67-year-old female with a past medical history of COPD, tobacco abuse presented to the ED last night for evaluation of right ankle pain status post mechanical fall. Apparently, as patient was carrying a box and coming down from the attic , she tripped on the fold-down stairwell and rolled over her right ankle. She was unable to bear weight on that right lower extremity. She denies any numbness or tingling of that right lower extremity. She was brought to the ED and patient was found to have a right calcaneal fracture for which podiatry was consulted. A consultation notes from podiatry stated patient should be discharged home as this is a nonoperative fracture. She will need a follow-up in 2 weeks. In the meantime she was advised nonweightbearing on her right lower extremity. Inpatient Certification: I certify that the inpatient services were ordered in accordance with Medicare regulations governing the order. This includes certification that hospital inpatient services are reasonable and necessary and in the case of services not specified as inpatient-only under 42 CFR 419.22(n), that they are appropriately provided as inpatient services in accordance to with the 2-midnight benchmark under 43 CFR 412.3(e) Estimated Total Length of Stay (Days): 2 Plans for Post Hospital Care: Not yet determined Review of Systems All other systems reviewed negative except as stated [facility] - History History Provided By: Patient - Medical History Medical History: Medical History (Last Updated 08/01/18 @ 06:27 by Kelsey Casas RN) Asthma Kidney stones Skin cancer - Surgical History Surgical History: Surgical History (Last Updated 08/01/18 @ 06:27 by Kelsey Casas RN) Hx of tonsillectomy - Family History Family History: Family History (Last Updated 08/01/18 @ 09:28 by Taqueria Catalan MD) Other Lung cancer - Tobacco History Second Hand Smoke Exposure: Yes Tobacco Use In Past 30 Days: Yes Smoking Status: Heavy tobacco smoker Tobacco Type: Cigarettes - Alcohol History How Often Do You Have a Drink Containing Alcohol: Monthly or less - Substance Use History Substance History: No History of Abuse - Travel History Recent Travel in the [place] Within the Last 8 Weeks: No Recent Travel Out of the Country Within the Last 8 Weeks: No - Immunization History Tetanus Immunization: <5 Years Hx Influenza Vaccine This Season: Yes Medications and Allergies Active Medications: Active Medications Acetaminophen (Tylenol) 650 mg PO Q4H PRN PRN Reason: Headache/fever/pain1-4 Hydrocodone Bitart/Acetaminophen ([place] 7.5/325) 1 tab PO Q6H PRN PRN Reason: Pain scale 5 to 10 Al Hydroxide/Mg Hydroxide (Milk Of Magnesia Liq) 30 ml PO Q12H PRN PRN Reason: Mild Constipation Dextrose (D50w Vial) 50 ml IV.PUSH UNSCH PRN PRN Reason: PER HYPOGLYCEMIA PROTOCOL Glucagon (Glucagon Inj) 1 mg OTHER PRN PRN PRN Reason: for Hypoglycemia Protocol Insulin Aspart (Novolog Insulin Correctional Sugar Inj) 0 unit SQ ACHS AND 3AM FRAN; Protocol Last Admin: 08/01/18 08:41 Dose: Not Given Morphine Sulfate (Morphine Inj) 2 mg IV.PUSH Q3H PRN PRN Reason: Breakthrough pain/or if NPO Last Admin: 08/01/18 08:32 Dose: 2 mg Ondansetron HCl (Zofran Inj) 4 mg IV.PUSH Q6H PRN PRN Reason: NAUSEA OR VOMITING Sodium Chloride (Ns Flush) 2 ml IV.FLUSH BID FRAN Last Admin: 08/01/18 08:41 Dose: Not Given Sodium Chloride (Ns Flush) 2 ml IV.FLUSH PRN PRN PRN Reason: FLUSH AFTER USING IV ACCESS Allergies Allergy/AdvReac Type Severity Reaction Status Date / Time No Known Allergies Allergy Verified 08/01/18 04:08 Home Medications Medication Instructions Recorded Confirmed Type alendronate [Fosamax] 70 mg PO QWEEK 08/01/18 08/01/18 History fluticasone-vilanterol [Breo 1 inh INHALATION DAILY 08/01/18 08/01/18 History Ellipta] furosemide [Lasix] 20 mg PO DAILY PRN 08/01/18 08/01/18 History Exam Vital signs: Vital Signs 08/01/18 00:26 08/01/18 05:44 08/01/18 06:12 Temperature 97.7 F 97.4 F L Pulse Rate 87 80 90 Respiratory Rate 15 16 18 Blood Pressure 114/58 L 118/56 L 121/59 L Pulse Oximetry 96 96 96 08/01/18 08:00 Temperature 98.1 F Pulse Rate 76 Respiratory Rate 18 Blood Pressure 119/58 L Pulse Oximetry 98 Intake & Output 07/31/18 08/01/18 08/01/18 18:59 06:59 18:59 Weight 76.8 kg Other: Date of Last Bowel Movement 07/31/18 Weight On Admission 76.8 kg Narrative: GENERAL: NAD SKIN: Warm and dry. HEAD: Atraumatic. Normocephalic. EYES: Pupils equal and round. No scleral icterus. No injection or drainage. ENT: No nasal bleeding or discharge. Mucous membranes pink and moist. NECK: Trachea midline. No JVD. CARDIOVASCULAR: Regular rate and rhythm. RESPIRATORY: No accessory muscle use. Clear to auscultation. Breath sounds equal bilaterally. GASTROINTESTINAL: Abdomen soft, non-tender, nondistended. Hepatic and splenic margins not palpable. MUSCULOSKELETAL: Extremities without clubbing, cyanosis, or edema. No obvious deformities. Right lower extremity in splint-neurovascular intact NEUROLOGICAL: Awake and alert. No obvious cranial nerve deficits. Motor grossly within normal limits. Five out of 5 muscle strength in the arms and legs. Normal speech. PSYCHIATRIC: Appropriate mood and affect; insight and judgment normal. Results - Labs CBC & Chem 7: 08/01/18 04:20 08/01/18 04:20 Labs: Laboratory Results - last 24 hr 08/01/18 08/01/18 08/01/18 04:20 04:20 04:20 WBC 13.1 H RBC 4.56 Hgb 14.3 Hct 43.7 MCV 95.7 MCH 31.4 MCHC 32.8 RDW 13.2 Plt Count 228 MPV 7.7 Neut % (Auto) 78.4 H Lymph % (Auto) 12.5 [place] % (Auto) 8.1 H Eos % (Auto) 0.5 Baso % (Auto) 0.5 Neut # (Auto) 10.3 H Lymph # (Auto) 1.6 [place] # (Auto) 1.1 H Eos # (Auto) 0.1 Baso # (Auto) 0.1 WBC Differential . Differential Comment Auto diff final PT 9.9 INR 1.0 APTT 24.8 Sodium 140 Potassium 4.3 Chloride 108 H Carbon Dioxide 25.0 Anion Gap 7 BUN 32 H Creatinine 0.96 Estimated GFR 58 L Random Glucose 87 Calcium 8.6 Total Bilirubin 0.7 AST 29 ALT 22 Alkaline Phosphatase 57 Total Protein 7.1 Albumin 3.6 - Imaging Impressions Ankle X-Ray 08/01/18 00:09 CONCLUSION: Acute nondisplaced calcaneal fracture. Ankle CT 08/01/18 00:47 CONCLUSION: 1. Calcaneal fracture. Foot CT 08/01/18 00:47 CONCLUSION: 1. Calcaneal fracture. Caprini VTE Risk Assessment Caprini VTE Risk Assessment: Moderate/High Risk (score >= 2) Caprini Risk Assessment Model: Point Value = 1 Point Value = 2 Point Value = 3 Point Value = 5 Age 41-60 Minor surgery BMI > 25 kg/m2 Swollen legs Varicose veins or History of unexplained or recurrent spontaneous Oral contraceptives or hormone replacement Sepsis (< 1 month) Serious lung disease, including pneumonia (< 1 month) Abnormal pulmonary function Acute myocardial infarction Congestive heart failure (< 1 month) History of inflammatory bowel disease Medical patient at bed rest Age 61-74 Arthroscopic surgery Major open surgery (> 45 min) Laparoscopic surgery (> 45 min) Malignancy Confined to bed (> 72 hours) Immobilizing plaster cast Central venous access Age >= 75 History of VTE Family history of VTE Factor V Leiden Prothrombin [id number] Lupus anticoagulant Anticardiolipin antibodies Elevated serum homocysteine Heparin-induced thrombocytopenia Other congenital or acquired thrombophilia Stroke (< 1 month) Elective arthroplasty Hip, pelvis, or leg fracture Acute spinal cord injury (< 1 month) Prophylaxis Regimen: Total Risk Factor Score Risk Level Prophylaxis Regimen 0-1 Low Early ambulation 2 Moderate Order ONE of the following: *Sequential Compression Device (SCD) *Heparin 5000 units SQ BID 3-4 Higher Order ONE of the following medications: *Heparin 5000 units SQ TID *Enoxaparin/Lovenox 40 mg SQ daily (WT < 150 kg, CrCl > 30 mL/min) *Enoxaparin/Lovenox 30 mg SQ daily (WT < 150 kg, CrCl > 10-29 mL/min) *Enoxaparin/Lovenox 30 mg SQ BID (WT < 150 kg, CrCl > 30 mL/min) AND/OR *Sequential Compression Device (SCD) 5 or more Highest Order ONE of the following medications: *Heparin 5000 units SQ TID (Preferred with Epidurals) *Enoxaparin/Lovenox 40 mg SQ daily (WT < 150 kg, CrCl > 30 mL/min) *Enoxaparin/Lovenox 30 mg SQ daily (WT < 150 kg, CrCl > 10-29 mL/min) *Enoxaparin/Lovenox 30 mg SQ BID (WT < 150 kg, CrCl > 30 mL/min) AND *Sequential Compression Device (SCD) Assessment and Plan - Plan 67-year-old female with Nondisplaced right calcaneal fracture -Ankle, foot CTs reviewed by me with finding of right calcaneal fracture -Podiatry consulted however recommend nonoperative treatment while nonweightbearing to right lower extremity in splint, discharged home with pain medication and DVT prophylaxis. And lastly follow-up in clinic in 2 weeks. Consult PT for evaluation Discharge patient to home Condition on discharge: Improved Regular Diet as tolerated Ad Aaliyah activity Rx written: see EMR Follow-up with primary care physician Podiatry in 2 weeks [employer] Prescription Drug Monitoring Database has been queried and verified prior to prescribing the controlled substance. Acute pain exception. This patient has normal, predicted, physiological, and time limited response to an adverse mechanical stimulus associated with surgery, trauma, or acute illness as described in my notes. There is a lack of alternative treatment options other than to include the prescribed narcotic treatment for this condition.
--- NOTE | 2018-08-01 09:43 | P.DCO ---
- Diagnosis (1) Right calcaneal fracture Status: Acute - Physical Therapy Order: Evaluate and treat - Home Health Nursing Order: IV medication administration - Case Management Consult Case Management Consult-Home Health: Yes - Certification I have seen patient Lina House on 08/01/18. My clinical findings support the need for the requested home health care services because: Limited mobility due to disease progression I certify that my clinical findings support that this patient is homebound because: Unsteady gait/balance (1) Right calcaneal fracture Qualifiers: Encounter type: initial encounter Calcaneus location: unspecified portion of calcaneus Fracture type: closed Fracture alignment: nondisplaced Qualified Code(s): S92.001A - Unspecified fracture of right calcaneus, initial encounter for closed fracture
[2018-08-01 11:52] VITALS: BP 110/54; TEMP 97.2; O2SAT 96
== END 2018-08-01 15:18 | disposition home or self-care (01) ==
LOC: NEPB 23:27 → NEDA 08-01 05:08 → N06 08-01 06:07
PROVIDERS: ADMIT Hospitalist; ATTEND Hospitalist